=== PATIENT | female | born 1965 | race Two or more races ===

== ENCOUNTER → 2020-02-21 | Outpatient (CLI) | payer OTHER ==
[~2020-02-21] MED LIST: ASPI81TA45 PO; ATEN25TA PO; ATOR20TA37 PO; DAPA5TAB PO; LISI40TA PO
[2020-02-21 15:36] LABS: ALBUMIN 4.1 g/dL (3.4-5.0); ANION GAP 6 mmol/L (5-15); CALCIUM 10.9 mg/dL (8.5-10.1); CHLORIDE 116 mmol/L (98-107); CREATININE 1.43 mg/dL (0.55-1.02)
[2020-02-21 15:45] LABS: ALANINE AMINOTRANSFERASE 23 U/L (12-78); ALKALINE PHOSPHATASE 164 U/L (45-117); BILIRUBIN,TOTAL 0.3 mg/dL (0.2-1.0)
== END | disposition home or self-care (01) ==
LOC: STAR 14:22
PROVIDERS: ATTEND Surgery
DX: Z01.812 Encounter for preprocedural laboratory examination (principal); Z20.828 Contact with and (suspected) exposure to other viral communicable diseases
CPT/HCPCS: 80053; 87635

== ENCOUNTER 2020-02-25 06:22 | Day surgery (SDC) | payer OTHER ==
[~2020-02-25] VITALS: Ht 170.2 cm; Wt 88.0 kg
[2020-02-25 06:44] VITALS: BP 180/87
[2020-02-25] MEDS ORDERED: MIDAZOLAM 1 MG/ML, 2ML ONE (06:45)
[2020-02-25] MEDS ORDERED: FENTANYL PF 250 MCG/5ML ONE ×3 (06:45→08:46)
[2020-02-25] MEDS ORDERED: LACTATED RINGERS 1,000 ML IV SCH (07:00)
[2020-02-25] MEDS ORDERED: CHLORHEXIDINE 15 ML UDC MM ONE (07:00)
[2020-02-25] MEDS ORDERED: HYDROmorphone 1 MG/ML, 1ML INJ IVPush PRN (07:30)
[2020-02-25] MEDS ORDERED: ONDANSETRON 2MG/ML, 2ML ONE (07:30)
[2020-02-25] MEDS ORDERED: PROMETHAZINE 25 MG/ML, 1ML IVPush PRN (07:30)
[2020-02-25] MEDS ORDERED: MEPERIDINE/PF 25MG/0.5ML IVPush PRN (07:30)
[2020-02-25] MEDS ORDERED: ROCURONIUM 10MG/ML,5ML ONE (07:30)
[2020-02-25] MEDS ORDERED: LABETALOL 5MG/ML, 20ML IV PRN (07:30)
[2020-02-25] MEDS ORDERED: HALOPERIDOL 5 MG/ML IV PRN (07:30)
[2020-02-25] MEDS ORDERED: NEOSTIGMINE 1 MG/ML, 10ML ONE (07:30)
[2020-02-25] MEDS ORDERED: PROPOFOL 10 MG/ML, 20ML ONE (07:30)
[2020-02-25] MEDS ORDERED: GLYCOPYRROLATE 0.2MG/1ML, 5ML ONE (07:30)
[2020-02-25] MEDS ORDERED: OXYcodone 5 MG/5 ML ORAL.SOL UDC PO PRN (07:30)
[2020-02-25] MEDS ORDERED: morphine SULFATE 10 MG/ML, 1ML IVPush PRN (07:30)
[2020-02-25] MEDS ORDERED: CEFAZOLIN 1,000 MG ONE (07:30)
[2020-02-25] MEDS ORDERED: SUCCINYLCHOLINE 20 MG/ML, 10ML ONE (07:30)
[2020-02-25] MEDS ORDERED: ACETAMINOPHEN 325 MG TABLET PO PRN (07:30)
[2020-02-25] MEDS ORDERED: FENTANYL PF 100 MCG/2ML ONE ×2 (08:53→10:15)
[2020-02-25 09:49] LABS: 10MIN %DROP IOPTH 37 %; 5MIN %DROP IOPTH 36 %; IOPTH BASELINE 190 pg/mL; SAMPLE 5 %DROP IOPTH 40 %; SAMPLE 6 %DROP IOPTH 69 %; SAMPLE 7 %DROP IOPTH 71 %
[2020-02-25] MEDS ORDERED: ACETAMINOPHEN 650 MG/20.3 ML UDC ONE (10:14)
[2020-02-25] MEDS ORDERED: hydrALAzine 20 MG/ML, 1ML ONE (10:15)
[2020-02-25] MEDS ORDERED: OXYcodone 5 MG/5 ML ORAL.SOL UDC ONE (10:15)
[2020-02-25] MEDS: hydrALAzine 20 MG/ML, 1ML IV PRN ×2 (10:19→10:40)
[2020-02-25] MEDS: FENTANYL PF 100 MCG/2ML IVPush PRN ×3 (10:25→11:12)
[2020-02-25] MEDS ORDERED: HYDROcodone/APAP 5/325 TABLET PO PRN (12:00)
[2020-02-25] MEDS ORDERED: MORPHINE SULFATE 4 MG/ML, 1ML IVPush PRN (12:00)
[2020-02-25 12:37] LABS: ALBUMIN 3.8 g/dL (3.4-5.0); CALCIUM 9.9 mg/dL (8.5-10.1)
[2020-02-25 13:54] VITALS: BP 131/85
[2020-02-25] MEDS ORDERED: HYDR-3240 PO (14:33)
[2020-02-25] MEDS ORDERED: CALC400T6 PO (14:34)
[2020-02-25 18:09] LABS: ALBUMIN 3.8 g/dL (3.4-5.0); CALCIUM 9.8 mg/dL (8.5-10.1)
[2020-02-25 18:33] VITALS: BP 160/85
[2020-02-25] MEDS ORDERED: ATORVASTATIN 20 MG TABLET PO SCH (21:00)
[2020-02-25] MEDS ORDERED: ASPIRIN 81 MG TABLET EC PO SCH (21:00)
[2020-02-26] MEDS ORDERED: ATENOLOL 25 MG TABLET PO SCH (06:00)
[2020-02-26] MEDS ORDERED: LISINOPRIL 40 MG TABLET PO SCH (09:00)
[2020-02-26] MEDS ORDERED: DAPAGLIFLOZIN 5 MG HOMEMEDPO SCH (09:00)
== END 2020-02-25 19:34 | disposition home or self-care (01) ==
LOC: OUT 06:22 → 4NE 11:38 → OUT 19:34
PROVIDERS: ATTEND Surgery
DX: E21.0 Primary hyperparathyroidism (principal); E11.22 Type 2 diabetes mellitus with diabetic chronic kidney disease; I12.9 Hypertensive chronic kidney disease with stage 1 through stage 4 chronic kidney disease, or unspecified chronic kidney disease; N18.9 Chronic kidney disease, unspecified; E78.00 Pure hypercholesterolemia, unspecified; F17.210 Nicotine dependence, cigarettes, uncomplicated; Z79.82 Long term (current) use of aspirin; Z79.899 Other long term (current) drug therapy
CPT/HCPCS: 36415; 60500; 82040; 82310; 83970; 88305; 88331; C1760; J0330; J0360; J0690; J2250; J2405; J2704; J2710; J3010; J7120; G0378